=== PATIENT | female | born 1945 ===

== ENCOUNTER 2017-04-11 08:51 | Observation (INO) ==
[2017-04-11] MEDS ORDERED: ONDANSETRON 4 MG/2 ML VIAL IV PRN (12:24)
[2017-04-11 13:19] LABS: Basophils # 0.1 10*3/uL (0.0-0.2); Basophils % 1.1 % (0.0-0.8); Eosinophils # 0.2 10*3/uL (0.0-0.87); Eosinophils % 4.5 % (0.00-10.9); Hemoglobin 12.4 GM/DL (12.0-16.0); Lymphocytes # 1.6 10*3/uL (1.4-4.0); Lymphocytes % 33.8 % (21.3-54.2); Mean Corpuscular HGB Conc 35.4 GM/DL (32-36); Mean Corpuscular Hemoglobin 30 PG (27-34); Mean Corpuscular Volume 84.7 FL (87-102); Monocytes # 0.4 10*3/uL (0.11-0.8); Monocytes % 9.4 % (1.7-12.7); Neutrophils # 2.4 10*3/uL (1.4-7.4); Neutrophils % 51.2 % (38.7-73.9); Platelet Count 145 T/CUMM (130-400); Red Blood Count 4.13 MC/CUMM (3.8-5.5); Red Cell Distribution Width 11.9 % (9.3-17.3); White Blood Count 4.7 T/CUMM (4-12)
[2017-04-11 14:00] LABS: Albumin 3.4 G/DL (3.4-5.0); Bilirubin,Total 0.9 MG/DL (0.2-1.0); Calcium 8.7 MG/DL (8.5-10.1); Osmolality,Calculated 286.7 MOS/KG (273-304); Total Protein 6.8 G/DL (6.4-8.3); Troponin I Only 0.015 NG/ML (0.00-0.045)
[2017-04-11] MEDS ORDERED: DEXTROSE 50% 25 GM/50 ML VIAL IV PRN (14:22)
[2017-04-11] MEDS ORDERED: GLUCAGON 1 MG VIAL IM PRN (14:22)
[2017-04-11] MEDS ORDERED: MORPHINE 2 MG/1 ML SYRINGE IV PRN (14:24)
[2017-04-11] MEDS ORDERED: ACETAMINOPHEN 325 MG TABLET PO PRN (14:24)
[2017-04-11] MEDS ORDERED: NITROGLYCERIN SL 0.4 MG TABLET SL PRN (15:31)
[2017-04-11 16:36] LABS: Troponin I Only < 0.015 NG/ML (0.00-0.045)
[2017-04-11] MEDS: INSULIN LISPRO 100 UNIT/ML SUBCUT SCH ×2 (17:18→20:27)
[2017-04-11] MEDS: ASPIRIN 325 MG TABLET PO SCH (17:18)
[2017-04-11 21:56] LABS: Troponin I Only 0.017 NG/ML (0.00-0.045)
[2017-04-12 08:15] VITALS: BP 110/54
[2017-04-12] MEDS: INSULIN LISPRO 100 UNIT/ML SUBCUT SCH (09:14)
[2017-04-12] MEDS: ASPIRIN 325 MG TABLET PO SCH (09:15)
== END 2017-04-12 09:50 | disposition home or self-care (01) ==
LOC: N.4E → SUATTDRO 11:04
PROVIDERS: ADMIT Internal Medicine; ATTEND Hospitalist